=== PATIENT | female | born 1960 | race Caucasian/White ===

== ENCOUNTER 2022-02-22 14:40 | Outpatient (CLI) | payer BC | END 2022-02-22 14:41 | disposition home or self-care (01) | LOC: BICMAMMO 14:40 | PROVIDERS: ATTEND Internal Medicine | DX: Z12.31 Encounter for screening mammogram for malignant neoplasm of breast (principal) | CPT/HCPCS: 77063; 77067 ==

== ENCOUNTER 2022-02-27 13:49 | Outpatient (CLI) | payer BC | END 2022-02-27 13:50 | disposition home or self-care (01) | LOC: BICMAMMO 13:49 | PROVIDERS: ATTEND Internal Medicine | DX: N63.10 Unspecified lump in the right breast, unspecified quadrant (principal) | CPT/HCPCS: G0279 ==

== ENCOUNTER 2022-03-14 15:11 | Outpatient (CLI) | payer BC | END 2022-03-14 15:12 | disposition home or self-care (01) | LOC: LABBT 15:11 | PROVIDERS: ATTEND Internal Medicine Gastroenterology | DX: Z12.11 Encounter for screening for malignant neoplasm of colon (principal); Z20.822 Contact with and (suspected) exposure to COVID-19; Z85.09 Personal history of malignant neoplasm of other digestive organs | CPT/HCPCS: 87811 ==

== ENCOUNTER 2022-03-17 08:35 | Day surgery (SDC) | payer BC ==
[2022-03-15 11:29] VITALS: BMI 26.3
[2022-03-17] MEDS ORDERED: Famotidine/PF 20 mg/2ml Vial ONE (10:22)
[2022-03-17] MEDS ORDERED: Ondansetron PF 4 MG/2 ML Vial ONE (10:40)
[2022-03-17] MEDS ORDERED: Succinylcholine 200 MG/10 ml SYRINGE FS ONE (10:40)
[2022-03-17] MEDS ORDERED: Dexamethasone 20 MG/5 ML VIAL ONE (10:40)
[2022-03-17] MEDS ORDERED: PROPOFOL 200 MG/20 ML VIAL ONE (10:40)
[2022-03-17] MEDS ORDERED: Lidocaine 1% PF 5 ML VIAL ONE (10:40)
== END 2022-03-17 14:00 | disposition home or self-care (01) ==
LOC: SDC 08:35
PROVIDERS: ATTEND Internal Medicine Gastroenterology
PROC: 0DBN8ZX Excision of Sigmoid Colon, Via Natural or Artificial Opening Endoscopic, Diagnostic (ICD-10-PCS; principal; 2022-03-17)
PROC: 0DJ08ZZ Inspection of Upper Intestinal Tract, Via Natural or Artificial Opening Endoscopic (ICD-10-PCS; principal; 2022-03-17)
DX: Z12.11 Encounter for screening for malignant neoplasm of colon (principal); K63.5 Polyp of colon; K57.30 Diverticulosis of large intestine without perforation or abscess without bleeding; K64.9 Unspecified hemorrhoids; I10 Essential (primary) hypertension; E03.9 Hypothyroidism, unspecified; E78.5 Hyperlipidemia, unspecified; J45.909 Unspecified asthma, uncomplicated; Z86.010 Personal history of colon polyps; Z85.028 Personal history of other malignant neoplasm of stomach; Z79.890 Hormone replacement therapy; Z79.899 Other long term (current) drug therapy; Z88.2 Allergy status to sulfonamides; Z91.011 Allergy to milk products; Z91.012 Allergy to eggs; Z91.018 Allergy to other foods
CPT/HCPCS: 88305; J1100; J2405; J2704; S0028

== ENCOUNTER 2023-11-19 14:02 | Outpatient (CLI) | payer MEDICARE ==
[2023-11-19 15:36] LABS: #Basophils 0.1 10x3/uL (0.0-0.2); #Eosinphils 0.1 10x3/uL (0.0-0.5); #Monocytes 0.4 10x3/uL (0.0-1.1); #Neutrophils 3.6 10x3/uL (1.5-8.4); %Eosinophils 1.8 % (0.0-6.0); %Lymphocytes 31.3 % (18.0-47.0); %Monocytes 6.2 % (0.0-10.0); %Neutrophils 59.4 % (40.0-75.0); Hematocrit 39.8 % (34.9-44.5); Hemoglobin 12.5 g/dL (12.0-15.5); Mean Corpuscular HGB CONC 31.4 g/dL (32.0-36.0); Mean Corpuscular Hemoglobin 28.3 pg (27.0-33.0); Mean Platelet Volume 8.7 fl (7.4-10.4); Platelet Count 277 10x3/uL (150-450); Red Blood Cell (RBC) Count 4.42 10x6/uL (3.90-5.03); White Blood Cell (WBC) Count 6.1 10x3/uL (3.5-10.5)
[2023-11-19 16:11] LABS: Anion Gap 13 mmol/L (10-20); BUN (Urea Nitrogen) 15 mg/dL (9.8-20.1); Calc. Creatinine Clearance 0 mL/min (70-130); Calcium 8.8 mg/dL (7.8-10.44); Carbon Dioxide 25 mmol/L (23-31); Chloride 105 mmol/L (98-107); Estimated GFR 46; Glucose 82 mg/dL (80-115); Potassium 4.5 mmol/L (3.5-5.1); Sodium 138 mmol/L (136-145)
[2023-11-19 16:18] LABS: Prothrombin Time 10.4 sec (9.5-12.1)
[2023-11-20 16:55] LABS: Free T4 (Free Thyroxine) 0.85 ng/dL (0.70-1.48); Thyroid Stimulating Hormone 0.7832 uIU/mL (0.35-4.94)
== END 2023-11-19 14:03 | disposition home or self-care (01) ==
LOC: LABBT 14:02
PROVIDERS: ATTEND Orthopaedic Surgery
DX: Z01.818 Encounter for other preprocedural examination (principal); M17.11 Unilateral primary osteoarthritis, right knee; E03.9 Hypothyroidism, unspecified; R00.1 Bradycardia, unspecified
CPT/HCPCS: 80048; 84439; 84443; 84481; 85025; 85610; 87081; 93005; 93010

== ENCOUNTER 2023-11-22 07:12 | Observation (INO) | payer MEDICARE ==
[2023-11-19 14:40] VITALS: BMI 28.5
[2023-11-22] MEDS ORDERED: fentaNYL 50 mcg/mL 1 mL Vial ONE (07:37)
[2023-11-22] MEDS ORDERED: Midazolam HCl 2 mg/2 ml Vial ONE (07:37)
[2023-11-22] MEDS ORDERED: EPINEPHrine 1 MG/ML VIAL ONE (07:37)
[2023-11-22] MEDS ORDERED: Bupivacaine PF 0.5% 30 ML VIAL ONE ×2 (07:38→09:39)
[2023-11-22] MEDS ORDERED: Sodium Chloride 0.9% 100 ML ONE ×2 (08:06→09:39)
[2023-11-22] MEDS ORDERED: Tranexamic Acid 1,000 MG/10 ML VIAL ONE (08:06)
[2023-11-22] MEDS ORDERED: Vancomycin (BATCH) 1.5 GM/300 ML BAG ONE (08:07)
[2023-11-22] MEDS ORDERED: Ondansetron PF 4 MG/2 ML Vial ONE ×2 (08:26→09:25)
[2023-11-22] MEDS ORDERED: Famotidine/PF 20 mg/2ml Vial ONE (08:26)
[2023-11-22] MEDS ORDERED: Zolpidem Tartrate 5 MG TAB PO PRN ×2 (09:18→10:00)
[2023-11-22] MEDS ORDERED: diphenhydrAMINE 25 MG CAP PO PRN (09:18)
[2023-11-22] MEDS ORDERED: Promethazine HCl 25 MG/ML VIAL IM PRN ×3 (09:18→11:26)
[2023-11-22] MEDS ORDERED: Acetaminophen 325 MG TAB PO PRN (09:18)
[2023-11-22] MEDS ORDERED: HYDROcodone/Acetaminophen 10/325 mg Tablet PO PRN ×4 (09:18→10:00)
[2023-11-22] MEDS ORDERED: Ondansetron PF 4 MG/2 ML Vial IVP PRN (09:18)
[2023-11-22] MEDS ORDERED: Dexamethasone 4 mg/ml Vial ONE (09:25)
[2023-11-22] MEDS ORDERED: Ketorolac Tromethamine 30 MG (1 mL) VIAL ONE (09:25)
[2023-11-22] MEDS ORDERED: Rocuronium Bromide 10 MG/ML (10ML VIAL) ONE (09:25)
[2023-11-22] MEDS ORDERED: Lidocaine 1% PF 5 ML VIAL ONE (09:25)
[2023-11-22] MEDS ORDERED: fentaNYL PF 100 MCG/2 ML SYRINGE ONE ×2 (09:25→11:27)
[2023-11-22] MEDS ORDERED: SUCCINYLCHOLINE/SOD CL,ISO/PF 200 MG/10 ML SYRINGE FS ONE (09:25)
[2023-11-22] MEDS ORDERED: PROPOFOL 20 ML ONE (09:26)
[2023-11-22] MEDS ORDERED: SUGAMMADEX SODIUM 200 MG/2 ML VIAL ONE (09:26)
[2023-11-22] MEDS ORDERED: CEFAZOLIN 2 GM VIAL ONE ×2 (09:39→14:38)
[2023-11-22] MEDS ORDERED: fentaNYL 50 mcg/mL 1 mL Vial SLOW IVP PRN (09:55)
[2023-11-22] MEDS ORDERED: traMADol HCl 50 MG TAB PO PRN ×2 (10:00)
[2023-11-22] MEDS ORDERED: Ropivacaine 0.2% 550 ML 550 ML NERVE BLCK SCH (10:00)
[2023-11-22] MEDS ORDERED: ePHEDrine Sulfate 50 MG/10 ML VIAL ONE (10:06)
[2023-11-22] MEDS ORDERED: PHENYLEPHRINE-NS 100 MCG/ML 10 ML SYRINGE ONE (10:21)
[2023-11-22] MEDS ORDERED: Ondansetron HCl/PF 4 MG/2 ML Vial IVP PRN (11:26)
[2023-11-22] MEDS ORDERED: HYDROmorphone 0.5 MG/0.5 ML SYRINGE ONE (12:38)
[2023-11-22] MEDS: Sodium Chloride 0.9% 1,000 ML IV SCH (15:58)
[2023-11-22] MEDS: CEFAZOLIN 2 GM in Sodium Chloride 0.9% 100 ML IVPB SCH (15:58)
[2023-11-22] MEDS: Ketorolac Tromethamine 30 MG (1 mL) VIAL IVP SCH (17:41)
[2023-11-22] MEDS: Mometasone 200 MCG/Formoterol 5 MCG 120 PUFF INHALER INH SCH (19:43)
[2023-11-22] MEDS ORDERED: Ondansetron ODT 8 MG TAB PO SCH (21:00)
[2023-11-22] MEDS: Ferrous Gluconate 324 MG TAB PO SCH (21:58)
[2023-11-22] MEDS: Aspirin 81 mg Enteric Coated Tablet PO SCH (21:59)
[2023-11-22] MEDS: Senokot S 8.6-50 MG TAB PO SCH (21:59)
[2023-11-23] MEDS: Ondansetron PF 4 MG/2 ML Vial IVP PRN (03:05)
[2023-11-23 04:15] LABS: Hematocrit 33.4 % (36.0-47.0); Hemoglobin 10.5 g/dL (12.0-16.0); Mean Corpuscular HGB CONC 31.4 g/dL (32.0-36.0); Mean Corpuscular Hemoglobin 28.3 pg (27.0-31.0); Mean Platelet Volume 8.8 fL (7.4-10.4); Platelet Count 189 10x3/uL (130-400); Red Blood Cell (RBC) Count 3.71 mill/uL (4.20-5.40)
[2023-11-23] MEDS: Mag-Al 1200 mg/1200 mg/30 ML UDCUP PO PRN (05:37)
[2023-11-23] MEDS: Multivitamin W/ Minerals 1 TAB PO SCH (08:39)
[2023-11-23] MEDS: Montelukast Sodium 10 mg Tablet PO SCH (08:39)
[2023-11-23] MEDS: Cholecalciferol 1,000 UNITS (25 MCG) TAB PO SCH (08:39)
[2023-11-23] MEDS: Thyroid 60 MG TAB PO SCH (08:39)
[2023-11-23] MEDS: Fluticasone Propionate Nasal Spray 16 gm Bottle NASAL SCH (09:55)
[2023-11-23] MEDS: Azelastine 137 MCG/NASAL Spray 30 ML NS SCH (09:55)
[2023-11-23 11:07] VITALS: BP 106/68; TEMP 98.4
[2023-11-25] MEDS ORDERED: Cyanocobalamin 1000 MCG/ML VIAL IM SCH (09:00)
== END 2023-11-23 12:20 | disposition home or self-care (01) ==
LOC: SDC 07:12 → SJJU 13:44
PROVIDERS: ADMIT Orthopaedic Surgery; ATTEND Orthopaedic Surgery
PROC: 0SRC0JZ Replacement of Right Knee Joint with Synthetic Substitute, Open Approach (ICD-10-PCS; principal; 2023-11-22)
DX: M17.11 Unilateral primary osteoarthritis, right knee (principal); J45.909 Unspecified asthma, uncomplicated; E78.00 Pure hypercholesterolemia, unspecified; E07.9 Disorder of thyroid, unspecified; K21.9 Gastro-esophageal reflux disease without esophagitis; I48.91 Unspecified atrial fibrillation; Z79.890 Hormone replacement therapy; Z90.710 Acquired absence of both cervix and uterus; Z98.890 Other specified postprocedural states; Z88.2 Allergy status to sulfonamides
CPT/HCPCS: 27447; 73560; 85027; 94640; 97110 ×2; 97116 ×2; 97530; A4306; C1776; J0171; J3010; J3370; 36415; J0665; J1100; J1170; J1885; J2250; J2405; J2704; J2795; J3490; S0028

== ENCOUNTER 2024-04-14 05:47 | Day surgery (SDC) | payer MEDICARE, BC ==
[2024-04-11 14:41] VITALS: BMI 28.5
[2024-04-14] MEDS ORDERED: PROPOFOL 20 ML ONE (06:29)
[2024-04-14] MEDS ORDERED: fentaNYL PF 100 MCG/2 ML SYRINGE ONE (06:29)
[2024-04-14] MEDS ORDERED: Lidocaine 2% 6 ML (Jelly) SYR ONE (06:31)
[2024-04-14] MEDS ORDERED: Bupivacaine PF 0.5% 30 ML VIAL ONE (06:54)
[2024-04-14] MEDS ORDERED: fentaNYL 50 mcg/mL 1 mL Vial ONE (06:54)
[2024-04-14] MEDS ORDERED: Bupivacaine HCl 0.5%/Epinephrine 1:200,000/PF 30 ml Vial ONE (07:00)
[2024-04-14] MEDS ORDERED: Ondansetron PF 4 MG/2 ML Vial ONE (07:17)
[2024-04-14] MEDS ORDERED: SUCCINYLCHOLINE/SOD CL,ISO/PF 200 MG/10 ML SYRINGE FS ONE (07:17)
[2024-04-14] MEDS ORDERED: Dexamethasone 20 MG/5 ML VIAL ONE (07:17)
[2024-04-14] MEDS ORDERED: HYDROmorphone 0.5 MG/0.5 ML SYRINGE ONE (07:51)
== END 2024-04-14 09:15 | disposition home or self-care (01) ==
LOC: SDC 05:47
PROVIDERS: ATTEND Orthopaedic Surgery
PROC: 0SSC0ZZ Reposition Right Knee Joint, Open Approach (ICD-10-PCS; principal; 2024-04-14)
DX: T84.84XA Pain due to internal orthopedic prosthetic devices, implants and grafts, initial encounter (principal); M24.661 Ankylosis, right knee; J45.909 Unspecified asthma, uncomplicated; E78.00 Pure hypercholesterolemia, unspecified; E07.9 Disorder of thyroid, unspecified; K21.9 Gastro-esophageal reflux disease without esophagitis; I48.91 Unspecified atrial fibrillation; Z90.710 Acquired absence of both cervix and uterus; Z90.49 Acquired absence of other specified parts of digestive tract; Z79.890 Hormone replacement therapy; Z98.890 Other specified postprocedural states; F17.200 Nicotine dependence, unspecified, uncomplicated; Z88.2 Allergy status to sulfonamides; Z79.899 Other long term (current) drug therapy; Y83.9 Surgical procedure, unspecified as the cause of abnormal reaction of the patient, or of later complication, without mention of misadventure at the time of the procedure
CPT/HCPCS: 27570; 64447; J0665; J1170; J2405; J2704; J3010; J1100

== ENCOUNTER 2024-07-23 15:05 | Outpatient (CLI) | payer MEDICARE, BC | END 2024-07-23 15:06 | disposition home or self-care (01) | LOC: BICMAMMO 15:05 | PROVIDERS: ATTEND Internal Medicine | DX: Z12.31 Encounter for screening mammogram for malignant neoplasm of breast (principal); Z78.0 Asymptomatic menopausal state; N64.89 Other specified disorders of breast; M81.0 Age-related osteoporosis without current pathological fracture; M85.88 Other specified disorders of bone density and structure, other site | CPT/HCPCS: 77063; 77067; 77080 ==

== ENCOUNTER 2024-07-29 14:54 | Outpatient (CLI) | payer MEDICARE, BC | END 2024-07-29 14:55 | disposition home or self-care (01) | LOC: BICMAMMO 14:54 | PROVIDERS: ATTEND Internal Medicine | DX: N64.89 Other specified disorders of breast (principal) | CPT/HCPCS: 76642; 77065; G0279 ==